=== PATIENT | female | born 1980 | race American Indian/Alaskan Native ===

== ENCOUNTER 2017-02-27 17:02 | Inpatient (IN) | payer MEDICAID ==
[2017-02-27] MEDS ORDERED: LACTATED RINGERS 500 ML IV ONE (17:33)
[2017-02-27] MEDS ORDERED: CELESTONE SOLUSPAN IM ONE (19:34)
[2017-02-27] MEDS ORDERED: MAGNESIUM SULFATE 4GM/100ML 4 GM/100 ML BAG IV ONE ×2 (19:42→20:05)
[2017-02-27] MEDS: LACTATED RINGERS 1,000 ML IV SCH (20:05)
--- NOTE | 2017-02-27 20:18 | History and Physical Report ---
History of Present Illness Date of examination: 02/27/17 Chief complaint: Short cervix w/ Pos FFN at 25+6 wks History of present illness: 36-year-old at 25+6 weeks presents for the above complaints and issues , she is a [facility]. Essential history this patient with known short cervix being seen by [facility]. She started vaginal progesterone on February 12 and last cervical length was 0.4 cm on February 19. Patient was seen in clinic today for fibronectin which was positive. She was then sent by the public policy coordinator to the triage to receive Celestone shot. Prior history is complicated by PPROM at 21 weeks in 07/2105 followed by nonviable delivery. In triage, we obtained an ultrasound which shows no cervical length with infant in breech with funic presentation. She is currently not indy Note that ultrasound also shows a 5 cm anterior fibroid Past History Past Medical History: no pertinent history Past Surgical History: no surgical history [employer] History: fibroids (she has a 5 cm anterior fibroid), trichomonas. denies: chlamydia, gonorrhea, HIV, syphilis Social history: single, full code. denies: smoking, alcohol abuse, prescription drug abuse, IV drug use - Obstetrical History Expected Date of Delivery: 06/06/17 Actual Gestation: 26 Week(s) 0 Day(s) : 3 Para: 2 Hx # Term Pregnancies: 1 Number of Pregnancies: 1 Number of Living Children: 1 Medications and Allergies Allergies Allergy/AdvReac Type Severity Reaction Status Date / Time No Known Allergies Allergy Unverified 02/27/17 17:25 Home Medications Medication Instructions Recorded Confirmed Last Taken Type Progesterone,Micronized 200 mg VG QHS 02/27/17 02/27/17 02/26/17 History [Progesterone] Active Meds: Active Medications Lactated Ringer's (Lactated Ringers) 1,000 mls @ 125 mls/hr IV DIRECT ERICA Last Admin: 02/27/17 20:05 Dose: 125 mls/hr Magnesium Sulfate (Magnesium Sulfate 40gm/1000ml) 40 gm in 1,000 mls @ 50 mls/ hr IV DIRECT ERICA PRN Reason: 2 GM/HR Magnesium Sulfate (Magnesium Sulfate 4gm/100ml) 4 gm in 100 mls @ 300 mls/hr IV ONCE ONE Stop: 02/27/17 20:24 Review of Systems Constitutional: no fever, no chills Cardiovascular: no chest pain, no orthopnea, no syncope, no lightheadedness, no shortness of breath, no dyspnea on exertion, no high blood pressure Respiratory: no cough, no shortness of breath, no dyspnea on exertion Gastrointestinal: no abdominal pain, no nausea, no vomiting Genitourinary: no vaginal bleeding, no vaginal discharge, no leakage of fluid - Vital Signs Vital signs: Vital Signs Pulse Pulse Ox 119 H 93 02/27/17 17:29 02/27/17 17:29 Temp Pulse Resp BP Pulse Ox 98.9 F 125 H 20 112/56 99 02/27/17 17:36 02/27/17 20:08 02/27/17 17:36 02/27/17 20:03 02/27/17 20:08 - Physical Exam Cardiovascular: Regular rate, Normal S1, Normal S2 Lungs: Positive: Clear to auscultation, Normal air movement Abdomen: Positive: normal appearance, soft. Negative: distention, tenderness, guarding, rigidity Genitourinary (Female): Positive: normal external genitalia Uterus: Positive: enlarged (EFW ~ 2000) Extremities: Positive: normal - Obstetrical FHR: category 1 Uterine Contraction Frequency (min): 0 Results Result Diagrams: 02/27/17 20:00 02/27/17 20:00 All other labs normal. Assessment and Plan A: 36-year-old 101 at 25+6 weeks with short cervix and positive fibronectin -No CTX Issues -No cervical length on sono today (02/27/17) -Breech with Funic presentation -Anterior ~ 5 cm fibroid -Morbid Obesity -NICU on diversion P: -Patient has been started on magnesium and Celestone course -Discussed with MFM manual control auger press operator for [facility]. Manzano, he recommends not proceeding with at this time -Continue conservative care for now -Discussed w/ NICU physician, would like patient transferred -Unfortunately, no accepting physician for transfer at this time - Patient Problems (1) 25 to 26 weeks gestation of Current Visit: Yes Status: Acute (2) Short cervical length during in third trimester Current Visit: Yes Status: Acute (3) Funic presentation Current Visit: Yes Status: Acute Qualifiers: Fetus number: F (4) Breech presentation Current Visit: Yes Status: Acute Qualifiers: Fetus number: F
[2017-02-27] MEDS: MAGNESIUM SULFATE 40GM/1000ML 40 GM/1,000 ML BAG IV SCH (20:25)
[2017-02-27 20:27] LABS: Hematocrit 30.7 % (30.3-42.9); Mean Corpuscular HGB Conc 33 % (30-34); Mean Corpuscular Hemoglobin 27 pg (28-32); Mean Corpuscular Volume 83 fl (79-97); Platelet Count 286 K/mm3 (140-440); Red Blood Count 3.69 M/mm3 (3.65-5.03); Red Cell Distribution Width 15.5 % (13.2-15.2)
[2017-02-27 20:39] LABS: Bacteria,Urine 4+ /HPF (Negative); Bilirubin,Urine NEG (Negative); Blood,Urine SM (Negative); Ketones,Urine NEG (Negative); Leukocyte Esterase,Urine MOD (Negative); Mucus,Urine 2+ /HPF; Nitrite,Urine POS (Negative); Urobilinogen,Urine < 2.0 mg/dL (<2.0)
[2017-02-27 20:48] LABS: Anion Gap 19 mmol/L; Blood Urea Nitrogen 5 mg/dL (7-17); Carbon Dioxide 21 mmol/L (22-30); Chloride 100.5 mmol/L (98-107); Glucose 91 mg/dL (65-100); Sodium 136 mmol/L (137-145)
[2017-02-27] MEDS ORDERED: ZOFRAN IV PRN (20:50)
[2017-02-27] MEDS ORDERED: TYLENOL PO PRN (20:50)
[2017-02-27] MEDS ORDERED: COLACE PO PRN (20:50)
[2017-02-27] MEDS ORDERED: D5LR 1,000 ML IV SCH (21:00)
[2017-02-28] MEDS ORDERED: LACTATED RINGERS 1,000 ML ONE ×2 (07:07→19:55)
[2017-02-28] MEDS ORDERED: NACL 0.9% 500 ML 500 ML IV ONE (07:08)
--- NOTE | 2017-02-28 07:08 | Progress Note ---
Assessment and Plan A: 36-year-old at 26 weeks with short cervix and positive fibronectin -No CTX Issues -No cervical length on sono (02/27/17) -Breech with Funic presentation -Anterior ~ 5 cm fibroid -Morbid Obesity -NICU on diversion -s/p BMZ # 1 (02/27 @ ~ 19:00) -On Magnesium P: -Await MFM consultation -Continue present care -Patient understands delivery will be a - Patient Problems (1) 25 to 26 weeks gestation of Current Visit: Yes Status: Acute (2) Short cervical length during in third trimester Current Visit: Yes Status: Acute (3) Funic presentation Current Visit: Yes Status: Acute Qualifiers: Fetus number: F (4) Breech presentation Current Visit: Yes Status: Acute Qualifiers: Fetus number: F Subjective - Subjective Date of service: 02/28/17 Principal diagnosis: IUP @ 26 wks, No cervical length, FFN pos Interval history: Patient seen and examined, stable this morning with no issues. No contractions , no vaginal bleeding or loss of fluid Patient reports: new complaints, movement normal, no loss of fluid, no vaginal bleeding, no contractions Objective - Vital Signs Vital Signs: Vital Signs - 12hr 02/27/17 02/27/17 02/27/17 20:01 20:03 20:05 Temperature Pulse Rate 104 H 100 H 119 H Pulse Rate [ From Monitor] Respiratory Rate Blood Pressure 150/93 112/56 Blood Pressure [Right Arm] O2 Sat by Pulse 95 91 Oximetry 02/27/17 02/27/17 02/27/17 20:07 20:08 20:11 Temperature Pulse Rate 119 H 125 H 117 H Pulse Rate [ From Monitor] Respiratory Rate Blood Pressure Blood Pressure [Right Arm] O2 Sat by Pulse 92 99 97 Oximetry 02/27/17 02/27/17 02/27/17 20:16 20:17 20:21 Temperature Pulse Rate 125 H 110 H 107 H Pulse Rate [ From Monitor] Respiratory Rate Blood Pressure 107/59 Blood Pressure [Right Arm] O2 Sat by Pulse 99 99 Oximetry 02/27/17 02/27/17 02/27/17 20:23 20:28 20:33 Temperature Pulse Rate 129 H 110 H 102 H Pulse Rate [ From Monitor] Respiratory Rate Blood Pressure 116/60 Blood Pressure [Right Arm] O2 Sat by Pulse 99 99 Oximetry 02/27/17 02/27/17 02/27/17 20:34 20:39 20:40 Temperature 98.2 F Pulse Rate 113 H 108 H Pulse Rate [ From Monitor] Respiratory 22 Rate Blood Pressure Blood Pressure [Right Arm] O2 Sat by Pulse 99 98 Oximetry 02/27/17 02/27/17 02/27/17 20:44 20:48 20:49 Temperature Pulse Rate 113 H 105 H 113 H Pulse Rate [ From Monitor] Respiratory Rate Blood Pressure 117/58 Blood Pressure [Right Arm] O2 Sat by Pulse 99 99 Oximetry 02/27/17 02/27/17 02/27/17 20:54 20:55 20:58 Temperature Pulse Rate 104 H 125 H 129 H Pulse Rate [ From Monitor] Respiratory Rate Blood Pressure Blood Pressure [Right Arm] O2 Sat by Pulse 99 94 99 Oximetry 02/27/17 02/27/17 02/27/17 21:03 21:08 21:13 Temperature Pulse Rate 107 H 107 H 105 H Pulse Rate [ From Monitor] Respiratory Rate Blood Pressure 122/44 Blood Pressure [Right Arm] O2 Sat by Pulse 99 99 99 Oximetry 02/27/17 02/27/17 02/27/17 21:18 21:22 21:27 Temperature Pulse Rate 101 H 107 H 105 H Pulse Rate [ From Monitor] Respiratory Rate Blood Pressure 126/101 Blood Pressure [Right Arm] O2 Sat by Pulse 99 90 97 Oximetry 02/27/17 02/27/17 02/27/17 21:28 21:57 21:58 Temperature Pulse Rate 119 H 123 H 107 H Pulse Rate [ From Monitor] Respiratory Rate Blood Pressure Blood Pressure [Right Arm] O2 Sat by Pulse 82 L 92 97 Oximetry 02/27/17 02/27/17 02/27/17 22:03 22:08 22:13 Temperature Pulse Rate 107 H 105 H 118 H Pulse Rate [ From Monitor] Respiratory Rate Blood Pressure Blood Pressure [Right Arm] O2 Sat by Pulse 98 98 98 Oximetry 02/27/17 02/27/17 02/27/17 22:18 22:23 22:28 Temperature Pulse Rate 114 H 106 H 110 H Pulse Rate [ From Monitor] Respiratory Rate Blood Pressure Blood Pressure [Right Arm] O2 Sat by Pulse 97 97 96 Oximetry 02/27/17 02/27/17 02/27/17 22:33 22:38 22:43 Temperature Pulse Rate 108 H 98 H 105 H Pulse Rate [ From Monitor] Respiratory Rate Blood Pressure Blood Pressure [Right Arm] O2 Sat by Pulse 98 96 98 Oximetry 02/27/17 02/27/17 02/27/17 22:48 22:53 22:58 Temperature Pulse Rate 104 H 104 H 102 H Pulse Rate [ From Monitor] Respiratory Rate Blood Pressure Blood Pressure [Right Arm] O2 Sat by Pulse 97 96 96 Oximetry 02/27/17 02/27/17 02/27/17 23:03 23:07 23:10 Temperature 98.1 F Pulse Rate 104 H 111 H Pulse Rate [ 111 H From Monitor] Respiratory 20 Rate Blood Pressure 129/67 Blood Pressure 129/67 [Right Arm] O2 Sat by Pulse 96 Oximetry 02/27/17 02/27/17 02/27/17 23:21 23:24 23:26 Temperature Pulse Rate 109 H 113 H Pulse Rate [ From Monitor] Respiratory 20 Rate Blood Pressure Blood Pressure [Right Arm] O2 Sat by Pulse 96 94 Oximetry 02/27/17 02/27/17 02/27/17 23:29 23:32 23:34 Temperature Pulse Rate 108 H 114 H 120 H Pulse Rate [ From Monitor] Respiratory Rate Blood Pressure Blood Pressure [Right Arm] O2 Sat by Pulse 95 94 94 Oximetry 02/27/17 02/27/17 02/27/17 23:37 23:39 23:44 Temperature Pulse Rate 114 H 108 H 107 H Pulse Rate [ From Monitor] Respiratory Rate Blood Pressure Blood Pressure [Right Arm] O2 Sat by Pulse 94 94 95 Oximetry 02/27/17 02/27/17 02/27/17 23:47 23:49 23:53 Temperature Pulse Rate 108 H 110 H 109 H Pulse Rate [ From Monitor] Respiratory Rate Blood Pressure Blood Pressure [Right Arm] O2 Sat by Pulse 94 95 94 Oximetry 02/27/17 02/27/17 02/28/17 23:54 23:59 00:04 Temperature Pulse Rate 109 H 107 H 106 H Pulse Rate [ From Monitor] Respiratory Rate Blood Pressure Blood Pressure [Right Arm] O2 Sat by Pulse 95 95 94 Oximetry 02/28/17 02/28/17 02/28/17 00:09 00:11 00:14 Temperature Pulse Rate 103 H 109 H 103 H Pulse Rate [ From Monitor] Respiratory Rate Blood Pressure Blood Pressure [Right Arm] O2 Sat by Pulse 96 94 96 Oximetry 02/28/17 02/28/17 02/28/17 00:19 00:23 00:24 Temperature Pulse Rate 108 H 110 H 104 H Pulse Rate [ From Monitor] Respiratory Rate Blood Pressure Blood Pressure [Right Arm] O2 Sat by Pulse 96 94 94 Oximetry 02/28/17 02/28/17 02/28/17 00:29 00:34 00:39 Temperature Pulse Rate 113 H 110 H 112 H Pulse Rate [ From Monitor] Respiratory Rate Blood Pressure Blood Pressure [Right Arm] O2 Sat by Pulse 94 98 95 Oximetry 02/28/17 02/28/17 02/28/17 00:40 00:44 00:45 Temperature Pulse Rate 118 H 112 H 114 H Pulse Rate [ From Monitor] Respiratory Rate Blood Pressure Blood Pressure [Right Arm] O2 Sat by Pulse 94 94 94 Oximetry 02/28/17 02/28/17 02/28/17 00:49 00:52 00:54 Temperature Pulse Rate 132 H 110 H 110 H Pulse Rate [ From Monitor] Respiratory Rate Blood Pressure Blood Pressure [Right Arm] O2 Sat by Pulse 96 94 92 Oximetry 02/28/17 02/28/17 02/28/17 00:58 00:59 01:04 Temperature Pulse Rate 111 H 112 H 109 H Pulse Rate [ From Monitor] Respiratory Rate Blood Pressure Blood Pressure [Right Arm] O2 Sat by Pulse 93 93 92 Oximetry 02/28/17 02/28/17 02/28/17 01:06 01:09 01:14 Temperature Pulse Rate 109 H 108 H 109 H Pulse Rate [ From Monitor] Respiratory Rate Blood Pressure Blood Pressure [Right Arm] O2 Sat by Pulse 92 93 92 Oximetry 02/28/17 02/28/17 02/28/17 01:19 01:24 01:29 Temperature Pulse Rate 107 H 106 H 106 H Pulse Rate [ From Monitor] Respiratory Rate Blood Pressure Blood Pressure [Right Arm] O2 Sat by Pulse 92 91 92 Oximetry 02/28/17 02/28/17 02/28/17 01:34 01:39 01:43 Temperature Pulse Rate 110 H 115 H 115 H Pulse Rate [ From Monitor] Respiratory Rate Blood Pressure Blood Pressure [Right Arm] O2 Sat by Pulse 91 95 91 Oximetry 02/28/17 02/28/17 02/28/17 01:44 01:49 01:50 Temperature Pulse Rate 111 H 109 H 103 H Pulse Rate [ From Monitor] Respiratory Rate Blood Pressure Blood Pressure [Right Arm] O2 Sat by Pulse 92 91 94 Oximetry 02/28/17 02/28/17 02/28/17 01:54 01:59 02:04 Temperature Pulse Rate 107 H 118 H 107 H Pulse Rate [ From Monitor] Respiratory Rate Blood Pressure Blood Pressure [Right Arm] O2 Sat by Pulse 93 95 92 Oximetry 02/28/17 02/28/17 02/28/17 02:05 02:08 02:14 Temperature Pulse Rate 106 H 107 H 106 H Pulse Rate [ From Monitor] Respiratory Rate Blood Pressure Blood Pressure [Right Arm] O2 Sat by Pulse 92 92 91 Oximetry 02/28/17 02/28/17 02/28/17 02:19 02:23 02:28 Temperature Pulse Rate 123 H 104 H 100 H Pulse Rate [ From Monitor] Respiratory Rate Blood Pressure Blood Pressure [Right Arm] O2 Sat by Pulse 95 96 98 Oximetry 02/28/17 02/28/17 02/28/17 02:31 02:33 02:35 Temperature 97.9 F Pulse Rate 105 H 112 H Pulse Rate [ 101 H From Monitor] Respiratory 20 Rate Blood Pressure 121/62 Blood Pressure 121/62 [Right Arm] O2 Sat by Pulse 97 97 91 Oximetry 02/28/17 02/28/17 02/28/17 02:39 02:43 02:49 Temperature Pulse Rate 98 H 100 H 107 H Pulse Rate [ From Monitor] Respiratory Rate Blood Pressure Blood Pressure [Right Arm] O2 Sat by Pulse 98 97 97 Oximetry 02/28/17 02/28/17 02/28/17 02:53 02:59 03:04 Temperature Pulse Rate 100 H 102 H 99 H Pulse Rate [ From Monitor] Respiratory Rate Blood Pressure Blood Pressure [Right Arm] O2 Sat by Pulse 98 97 97 Oximetry 02/28/17 02/28/17 02/28/17 03:08 03:13 03:18 Temperature Pulse Rate 100 H 99 H 101 H Pulse Rate [ From Monitor] Respiratory Rate Blood Pressure Blood Pressure [Right Arm] O2 Sat by Pulse 97 97 97 Oximetry 02/28/17 02/28/17 02/28/17 03:23 03:28 03:34 Temperature Pulse Rate 106 H 94 H 101 H Pulse Rate [ From Monitor] Respiratory Rate Blood Pressure Blood Pressure [Right Arm] O2 Sat by Pulse 97 98 97 Oximetry 02/28/17 02/28/17 02/28/17 03:39 03:44 03:49 Temperature Pulse Rate 106 H 114 H 105 H Pulse Rate [ From Monitor] Respiratory Rate Blood Pressure Blood Pressure [Right Arm] O2 Sat by Pulse 94 0 L 97 Oximetry 02/28/17 02/28/17 02/28/17 03:54 03:58 04:02 Temperature Pulse Rate 121 H 108 H 102 H Pulse Rate [ From Monitor] Respiratory Rate Blood Pressure 107/55 Blood Pressure [Right Arm] O2 Sat by Pulse 91 96 Oximetry 02/28/17 02/28/17 02/28/17 04:04 04:08 04:13 Temperature Pulse Rate 104 H 119 H 109 H Pulse Rate [ From Monitor] Respiratory Rate Blood Pressure Blood Pressure [Right Arm] O2 Sat by Pulse 96 97 97 Oximetry 02/28/17 02/28/17 02/28/17 04:19 04:23 04:28 Temperature Pulse Rate 102 H 104 H 106 H Pulse Rate [ From Monitor] Respiratory Rate Blood Pressure Blood Pressure [Right Arm] O2 Sat by Pulse 96 98 98 Oximetry 02/28/17 02/28/17 02/28/17 04:33 04:39 04:43 Temperature Pulse Rate 107 H 108 H 109 H Pulse Rate [ From Monitor] Respiratory Rate Blood Pressure Blood Pressure [Right Arm] O2 Sat by Pulse 98 98 98 Oximetry 02/28/17 02/28/17 02/28/17 04:48 04:53 04:58 Temperature Pulse Rate 114 H 106 H 105 H Pulse Rate [ From Monitor] Respiratory Rate Blood Pressure Blood Pressure [Right Arm] O2 Sat by Pulse 98 97 97 Oximetry 02/28/17 02/28/17 02/28/17 05:03 05:08 05:13 Temperature Pulse Rate 101 H 102 H 104 H Pulse Rate [ From Monitor] Respiratory Rate Blood Pressure Blood Pressure [Right Arm] O2 Sat by Pulse 96 97 96 Oximetry 02/28/17 02/28/17 02/28/17 05:18 05:22 05:23 Temperature Pulse Rate 101 H 103 H 101 H Pulse Rate [ From Monitor] Respiratory Rate Blood Pressure Blood Pressure [Right Arm] O2 Sat by Pulse 95 94 96 Oximetry 02/28/17 02/28/17 02/28/17 05:28 05:33 05:37 Temperature Pulse Rate 105 H 96 H 108 H Pulse Rate [ From Monitor] Respiratory Rate Blood Pressure Blood Pressure [Right Arm] O2 Sat by Pulse 94 95 94 Oximetry 02/28/17 02/28/17 02/28/17 05:38 05:43 05:44 Temperature Pulse Rate 93 H 104 H 99 H Pulse Rate [ From Monitor] Respiratory Rate Blood Pressure Blood Pressure [Right Arm] O2 Sat by Pulse 96 95 94 Oximetry 02/28/17 02/28/17 02/28/17 05:48 05:53 05:58 Temperature Pulse Rate 98 H 98 H 105 H Pulse Rate [ From Monitor] Respiratory Rate Blood Pressure Blood Pressure [Right Arm] O2 Sat by Pulse 98 98 98 Oximetry 02/28/17 02/28/17 02/28/17 06:03 06:08 06:13 Temperature Pulse Rate 108 H 98 H 102 H Pulse Rate [ From Monitor] Respiratory Rate Blood Pressure Blood Pressure [Right Arm] O2 Sat by Pulse 97 98 97 Oximetry 02/28/17 02/28/17 02/28/17 06:18 06:23 06:28 Temperature Pulse Rate 109 H 105 H 99 H Pulse Rate [ From Monitor] Respiratory Rate Blood Pressure Blood Pressure [Right Arm] O2 Sat by Pulse 96 97 97 Oximetry 02/28/17 02/28/17 02/28/17 06:33 06:38 06:43 Temperature Pulse Rate 99 H 101 H 110 H Pulse Rate [ From Monitor] Respiratory Rate Blood Pressure Blood Pressure [Right Arm] O2 Sat by Pulse 96 98 97 Oximetry 02/28/17 02/28/17 02/28/17 06:48 06:51 06:53 Temperature Pulse Rate 103 H 111 H 105 H Pulse Rate [ From Monitor] Respiratory Rate Blood Pressure Blood Pressure [Right Arm] O2 Sat by Pulse 97 93 96 Oximetry 02/28/17 02/28/17 06:57 06:58 Temperature Pulse Rate 99 H 98 H Pulse Rate [ From Monitor] Respiratory Rate Blood Pressure Blood Pressure [Right Arm] O2 Sat by Pulse 94 96 Oximetry - Exam Abdomen: Present: normal appearance, soft. Absent: distention, tenderness, guarding Uterus: Absent: tenderness FHR: category 1 - Labs Labs: Abnormal Labs 02/27/17 02/27/17 02/28/17 20:00 20:00 02:25 Hgb 10.0 L MCH 27 L RDW 15.5 H Sodium 136 L Carbon Dioxide 21 L BUN 5 L Creatinine 0.4 L Magnesium 3.80 H Laboratory Results - last 24 hr 02/27/17 02/27/17 02/27/17 20:00 20:00 20:00 WBC 9.0 RBC 3.69 Hgb 10.0 L Hct 30.7 MCV 83 MCH 27 L MCHC 33 RDW 15.5 H Plt Count 286 Sodium 136 L Potassium 4.0 Chloride 100.5 Carbon Dioxide 21 L Anion Gap 19 BUN 5 L Creatinine 0.4 L Estimated GFR > 60 BUN/Creatinine Ratio 12.50 Glucose 91 Calcium 9.0 Magnesium Urine Color Yellow Urine Turbidity Slightly-cloudy Urine pH 7.0 Ur Specific [place] 1.020 Urine Protein 30 mg/dl Urine Glucose (UA) Neg Urine Ketones Neg Urine Blood Sm Urine Nitrite Pos Urine Bilirubin Neg Urine Urobilinogen < 2.0 Ur Leukocyte Esterase Mod Urine WBC (Auto) 2.0 Urine RBC (Auto) 3.0 U Epithel Cells (Auto) 13.0 Urine Bacteria (Auto) 4+ Urine Mucus 2+ Blood Type Antibody Screen KIMBER Antibody Screen 02/27/17 02/28/17 20:00 02:25 WBC RBC Hgb Hct MCV MCH MCHC RDW Plt Count Sodium Potassium Chloride Carbon Dioxide Anion Gap BUN Creatinine Estimated GFR BUN/Creatinine Ratio Glucose Calcium Magnesium 3.80 H Urine Color Urine Turbidity Urine pH Ur Specific [place] Urine Protein Urine Glucose (UA) Urine Ketones Urine Blood Urine Nitrite Urine Bilirubin Urine Urobilinogen Ur Leukocyte Esterase Urine WBC (Auto) Urine RBC (Auto) U Epithel Cells (Auto) Urine Bacteria (Auto) Urine Mucus Blood Type O POSITIVE Antibody Screen TNR KIMBER Antibody Screen Negative
--- NOTE | 2017-02-28 09:57 | Ultrasound Report ---
ULTRASOUND OB LIMITED ULTRASOUND OB TRANSVAGINAL History: well being, evaluate position Technique: Transabdominal ultrasound with Doppler interrogation. Gestation: Single Position: Breech Heart Rate: 151 BPM Cervical length: 0.0 cm (Normal > 3 cm). The cervix is open and the external os measures 0.9 cm in diameter.
[2017-02-28] MEDS: MAGNESIUM SULFATE 40GM/1000ML 40 GM/1,000 ML BAG IV SCH (16:01)
--- NOTE | 2017-02-28 17:58 | Event Note ---
Date: 02/28/17 Category 1 tracing, still no cramping or contractions. Reviewed preliminary ultrasound report, shows cervical length 0.32 cm with funeling at 1.3 cm. Infant still breech but funic presentation appears to have resolved. Patient may continue to use her vaginal progesterone per MFM but placement should be shallow
[2017-02-28] MEDS ORDERED: CELESTONE SOLUSPAN IM ONE (20:00)
[2017-02-28] MEDS: LACTATED RINGERS 1,000 ML IV SCH (20:01)
[2017-02-28] MEDS ORDERED: LACTATED RINGERS 1,000 ML IV SCH (21:00)
--- NOTE | 2017-03-01 08:07 | Progress Note ---
Assessment and Plan A: 36-year-old at 26+1 weeks with short cervix and positive fibronectin -No CTX Issues -Repeat C.L. ~ 0.3 cm w/ funneling on sono (02/28/17) -Breech (Funic presentation resolved) -Anterior ~ 5 cm fibroid -Morbid Obesity -s/p BMZ # 2 (02/28/17) P: -Repeat magnesium level now -Discontinue IV magnesium protocol at ~ 8 PM -Continue present care -Await MFM input - Patient Problems (1) 25 to 26 weeks gestation of Current Visit: Yes Status: Acute (2) Short cervical length during in third trimester Current Visit: Yes Status: Acute (3) Funic presentation Current Visit: Yes Status: Acute Qualifiers: Fetus number: F (4) Breech presentation Current Visit: Yes Status: Acute Qualifiers: Fetus number: F Subjective - Subjective Date of service: 03/01/17 Principal diagnosis: IUP @ 26+1 wks, No cervical length, FFN pos Interval history: Patient seen and examined, stable doing well. She currently has no contractions or cramping. Ultrasound yesterday showed infants delivered breech, cervical length however 0.36 now with funneling. Funic presentation appears to have resolved. Magnesium level drawn yesterday shows a level of 16, patient shows no sign of toxicity. Plan is repeat mag level at this time Patient reports: new complaints, movement normal, no loss of fluid, no vaginal bleeding, no contractions Objective - Vital Signs Vital Signs: Vital Signs - 12hr 03/01/17 03/01/17 03/01/17 00:05 00:20 00:25 Temperature 98.1 F Pulse Rate 112 H 106 H 104 H Respiratory 22 Rate Blood Pressure 127/63 O2 Sat by Pulse 96 96 Oximetry 03/01/17 03/01/17 03/01/17 00:27 00:30 00:33 Temperature Pulse Rate 102 H 103 H 103 H Respiratory Rate Blood Pressure O2 Sat by Pulse 94 92 94 Oximetry 03/01/17 03/01/17 03/01/17 00:35 00:39 00:40 Temperature Pulse Rate 105 H 102 H 102 H Respiratory Rate Blood Pressure O2 Sat by Pulse 93 93 92 Oximetry 03/01/17 03/01/17 03/01/17 00:45 00:50 00:55 Temperature Pulse Rate 100 H 99 H 103 H Respiratory Rate Blood Pressure O2 Sat by Pulse 91 93 91 Oximetry 03/01/17 03/01/17 03/01/17 01:00 01:05 01:10 Temperature Pulse Rate 102 H 99 H 100 H Respiratory Rate Blood Pressure O2 Sat by Pulse 93 91 96 Oximetry 03/01/17 03/01/17 03/01/17 01:11 01:15 03:55 Temperature 97.9 F Pulse Rate 103 H 104 H Respiratory Rate Blood Pressure O2 Sat by Pulse 91 92 Oximetry 03/01/17 03/01/17 03/01/17 04:51 06:07 06:12 Temperature Pulse Rate 120 H 110 H 106 H Respiratory 20 Rate Blood Pressure 136/75 O2 Sat by Pulse 96 97 Oximetry 03/01/17 03/01/17 03/01/17 06:17 06:22 06:27 Temperature Pulse Rate 106 H 103 H 106 H Respiratory Rate Blood Pressure O2 Sat by Pulse 97 97 96 Oximetry 03/01/17 03/01/17 03/01/17 06:32 06:37 06:42 Temperature Pulse Rate 111 H 115 H 111 H Respiratory Rate Blood Pressure O2 Sat by Pulse 98 99 98 Oximetry 03/01/17 03/01/17 03/01/17 06:47 06:51 06:52 Temperature Pulse Rate 100 H 102 H 109 H Respiratory Rate Blood Pressure O2 Sat by Pulse 97 94 97 Oximetry 03/01/17 03/01/17 03/01/17 06:57 07:02 07:07 Temperature Pulse Rate 101 H 97 H 100 H Respiratory Rate Blood Pressure O2 Sat by Pulse 96 96 96 Oximetry 03/01/17 03/01/17 03/01/17 07:12 07:17 07:22 Temperature Pulse Rate 90 94 H 94 H Respiratory Rate Blood Pressure O2 Sat by Pulse 97 97 97 Oximetry 03/01/17 03/01/17 03/01/17 07:27 07:32 07:37 Temperature Pulse Rate 93 H 88 97 H Respiratory Rate Blood Pressure O2 Sat by Pulse 96 97 96 Oximetry 03/01/17 03/01/17 03/01/17 07:38 07:42 07:47 Temperature Pulse Rate 93 H 98 H 99 H Respiratory Rate Blood Pressure 122/66 O2 Sat by Pulse 98 97 Oximetry 03/01/17 03/01/17 07:52 07:57 Temperature Pulse Rate 118 H 101 H Respiratory Rate Blood Pressure O2 Sat by Pulse 96 98 Oximetry - Exam FHR: category 1 - Labs Labs: Abnormal Labs 02/27/17 02/27/17 02/27/17 20:00 20:00 20:00 Hgb 10.0 L MCH 27 L RDW 15.5 H Sodium 136 L Carbon Dioxide 21 L BUN 5 L Creatinine 0.4 L Magnesium Crossmatch See Detail 02/28/17 02/28/17 02/28/17 02:25 06:50 15:34 Hgb MCH RDW Sodium Carbon Dioxide BUN Creatinine Magnesium 3.80 H 4.20 H 4.10 H Crossmatch 02/28/17 23:07 Hgb MCH RDW Sodium Carbon Dioxide BUN Creatinine Magnesium 16.20 H Crossmatch Laboratory Results - last 24 hr 02/27/17 02/28/17 02/28/17 20:00 15:34 23:07 Magnesium 4.10 H 16.20 H Blood Type O POSITIVE Antibody Screen TNR KIMBER Antibody Screen Negative Crossmatch See Detail
[2017-03-01] MEDS ORDERED: MILK OF MAGNESIA PO PRN (10:00)
[2017-03-01] MEDS: MAGNESIUM SULFATE 40GM/1000ML 40 GM/1,000 ML BAG IV SCH (10:40)
--- NOTE | 2017-03-01 12:26 | Consultation ---
History of Present Illness Consult date: 03/01/17 Requesting physician: FEDERICO DANG History of present illness: 36-year-old at 26 0/7 weeks She is a [facility]. Patient had Pos FFN and shortened Cervix and sent Essential history this patient with known short cervix being seen by [facility]. She started vaginal progesterone on February 12 and last cervical length was 0.4 cm on February 19. She was then sent by the therapy site coordinator to the triage to receive Celestone shot. 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 denies: chlamydia, gonorrhea, HIV, syphilis Social history: single, full code. denies: smoking, alcohol abuse, prescription drug abuse, IV drug use - Obstetrical History Expected Date of Delivery: 06/06/17 Actual Gestation: 26 Week(s) 0 Day(s) : 3 Para: 2 2008 - Term M 7# 2015 - Vag Del - PPROM at 22 weeks \\ Past History Past Medical History: no pertinent history Past Surgical History: no surgical history CURRICULUM DIRECTOR History: fibroids (she has a 5 cm anterior fibroid), trichomonas. denies: chlamydia, gonorrhea, HIV, syphilis - Obstetrical History : 3 Medications and Allergies Allergies Allergy/AdvReac Type Severity Reaction Status Date / Time No Known Allergies Allergy Unverified 02/27/17 17:25 Home Medications Medication Instructions Recorded Confirmed Last Taken Type Progesterone,Micronized 200 mg VG QHS 02/27/17 02/27/17 02/26/17 History [Progesterone] Active Meds: Active Medications Acetaminophen (Tylenol) 650 mg PO Q4H PRN PRN Reason: Pain MILD(1-3)/Fever >100.5/CASTILLO Last Admin: 02/27/17 23:21 Dose: 650 mg Docusate Sodium (Colace) 100 mg PO Q12H PRN PRN Reason: Constipation Magnesium Sulfate (Magnesium Sulfate 40gm/1000ml) 40 gm in 1,000 mls @ 50 mls/ hr IV DIRECT ERICA PRN Reason: 2 GM/HR Last Admin: 02/28/17 16:01 Dose: 2 gm/hr, 50 mls/hr Lactated Ringer's (Lactated Ringers) 1,000 mls @ 75 mls/hr IV DIRECT ERICA Magnesium Hydroxide (Milk Of Magnesia) 30 ml PO QDAY PRN PRN Reason: Bowel Movement Ondansetron HCl (Zofran) 4 mg IV Q6H PRN PRN Reason: Nausea And Vomiting - Vital Signs Vital signs: Vital Signs Pulse Pulse Ox 119 H 93 02/27/17 17:29 02/27/17 17:29 Temp Pulse Resp BP Pulse Ox 98.6 F 100 H 18 122/66 95 03/01/17 07:00 03/01/17 08:42 03/01/17 07:00 03/01/17 07:38 03/01/17 08:42 Results Result Diagrams: 02/27/17 20:00 02/27/17 20:00 Abnormal lab results 02/27/17 02/28/17 02/28/17 Range/Units 20:00 15:34 23:07 Magnesium 4.10 H 16.20 H (1.7-2.3) mg/dL Crossmatch See Detail 03/01/17 Range/Units 08:16 Magnesium 5.10 H (1.7-2.3) mg/dL Crossmatch All other labs normal. Assessment and Plan Impression: 1. Larsen IUP at 26 0/7 weeks 2. Shortened CL with Funneling 3. Positive FFN 4. H/O PPROM at 22 weeks 5. Unstable Lie 6. Anemia 7. Pos UA - Send Urine C&S - Suspected UTI 8. MO Recommendations 1. Review of Images CL from [facility] US - Funneling noted with .32 cm of cervix at ext os. Would do Speculum Exam - If Cervix closed and membranes not coming through may allow discharge home with restricted activity and pelvic rest. Patient understands unstable lie and could rupture at home or in hospital. Patient states she lives "10 minutes from hospital" and would maintain bedrest. 2. Iron BID 3. Send Urine for C&S 4. Macrobid - BID - x 10 days 5. Call for DFM's, Vag Bleeding, S/S of PTL, or leakage or S/S of Chorio/ infection 6. Follow up with [facility] 2 weeks
--- NOTE | 2017-03-01 14:27 | Event Note ---
Date: 03/01/17 [facility] notes reviewed, thanks. Gentle speculum exam performed, no bulging membranes noted and OS appears closed. On gentle exam, os opened fingertip. Will discharge home as per Dr. Chatman's instructions. Patient aware of warning signs and symptoms to return to the hospital
--- NOTE | 2017-03-01 14:33 | Discharge Summary ---
Providers - Providers Date of Admission: 02/27/17 21:27 Date of discharge: 03/01/17 Attending physician: XIOMARA BENSON MD 02/27/17 20:50 Consult to Physician [CONS] Routine Consulting Provider: LAURA SEGURA Reason For Exam: No cervix w/ pos FFN Place consult to:: THANIA Notified:: EDEL at the office. Phone number called:: [phone] Was contact made?: Yes If yes, spoke with:: Dr Segura Time called:: 11:35 Primary care physician: XIOMARA BENSON MD Hospitalization Reason for admission: IUP - , observation Hospital course: 36-year-old admitted at 25+6 weeks on 02/27/17 with c/o short cervix and Pos FFN, she is a [facility]. Essential history this patient with known short cervix being seen by THANIA. She started vaginal progesterone on February 12 and last cervical length was 0.4 cm on February 19. Patient was seen in clinic today for fibronectin which was positive. She was then sent by the court abstractor to the triage to receive Celestone shot. Prior history is complicated by PPROM at ~ 21 weeks in 07/2015 followed by nonviable delivery. In triage, we obtained an ultrasound which shows no cervical length with in breech with funic presentation. She was currently not indy Note that ultrasound also shows a 5 cm anterior fibroid A: 36-year-old at 26+1 weeks with short cervix and positive fibronectin -No CTX Issues -Repeat C.L. ~ 0.3 cm w/ funneling on sono (02/28/17) -Breech (Funic presentation resolved) -Anterior ~ 5 cm fibroid -Morbid Obesity -s/p BMZ # 2 (02/28/17) She was admitted to the floor, and started on magnesium and Celestone course Repeat ultrasound on 02/28/2017 showed cervical length of 0.32 with funneling, funic presentation had resolved. Seen by M on consultation bases with recommendation to obtain sterile speculum exam. Recommendation is to discharge patient if no bulging membrane in the vagina. Speculum exam performed with os appearing closed. On gentle bimanual exam fingertip of the external os noted. She will be discharged home to follow up as recommended by MFM Advised continued bed rest with bathroom privileges. Complete pelvic rest but continue gentle application of Vaginal progesterone She is already aware of warning signs and symptoms needing return to the hospital Condition at discharge: Good Disposition: DISCHARGED TO HOME OR SELFCARE - Discharge Diagnoses (1) 25 to 26 weeks gestation of Status: Acute (2) Short cervical length during in third trimester Status: Acute (3) Funic presentation Status: Resolved Qualifiers: Fetus number: F (4) Breech presentation Status: Acute Qualifiers: Fetus number: F (5) Morbid obesity with BMI of 45.0-49.9, adult Status: Acute (6) Fibroid uterus Status: Acute Qualifiers: Uterine leiomyoma location: U (7) UTI (urinary tract infection) during Status: Acute Plan - Provider Discharge Summary Activity: no sex for 6 weeks, no heavy lifting 4 weeks, no strenuous exercise, other (bedrest with bathroom privileges) Diet: routine Instructions: other (follow MFM recommendations to return to the hospital) Additional instructions: [] Smoking cessation referral if applicable(refer to patient education folder for contact #) [] Refer to [facility] Booklet Call your doctor immediately for: * Fever > 100.5 * Heavy vaginal bleeding ( >1 pad per hour) * Severe persistent headache * Shortness of breath * Reddened, hot, painful area to leg or breast * Drainage or odor from incision. * Keep incision clean and dry at all times and follow doctor's instructions regarding bathing/showering - Follow up plan Follow up: XIOMARA UGALDE MD [Primary Care Provider] - 48 Hours
[2017-03-01 16:20] VITALS: BP 123/65
--- NOTE | 2017-03-02 07:54 | Ultrasound Report ---
ULTRASOUND OB LIMITED ULTRASOUND OB TRANSVAGINAL History: Follow up cervical length Technique: Transabdominal and transvaginal ultrasound with Doppler interrogation. Gestation: Single Position: Breech Heart Rate: 141 BPM Cervical length: 0.3 cm (Normal > 3 cm). Cervical funneling is identified. The internal cervical os this patient and measures 1.3 cm in diameter.
== END 2017-03-01 16:40 | disposition home or self-care (01) | DRG 781 ==
LOC: TRG 17:02 → LD 21:27
PROVIDERS: ADMIT Obstetrics & Gynecology; ATTEND Obstetrics & Gynecology
DX: O32.1XX0 Maternal care for breech presentation, not applicable or unspecified (principal); O23.43 Unspecified infection of urinary tract in pregnancy, third trimester; O26.873 Cervical shortening, third trimester; O34.13 Maternal care for benign tumor of corpus uteri, third trimester; O99.213 Obesity complicating pregnancy, third trimester; E66.01 Morbid (severe) obesity due to excess calories; O99.013 Anemia complicating pregnancy, third trimester; Z68.42 Body mass index [BMI] 45.0-49.9, adult; Z3A.26 26 weeks gestation of pregnancy
CPT/HCPCS: 36415; 76815; 76817; 80048; 81001; 83735; 85027; 86850; 86900; 86901; 86920; 87086; J0702; J3475; J7120

== ENCOUNTER 2017-03-20 03:04 | Outpatient (CLI) | payer MEDICAID ==
[2017-03-20] MEDS ORDERED: LACTATED RINGERS 500 ML IV ONE (03:19)
[2017-03-20 04:25] VITALS: BP 126/76
[2017-03-20 04:37] LABS: Bilirubin,Urine NEG (Negative); Blood,Urine SM (Negative); Ketones,Urine NEG (Negative); Leukocyte Esterase,Urine MOD (Negative); Mucus,Urine FEW /HPF; Nitrite,Urine NEG (Negative); Protein,Urine <15 mg/dL mg/dL (Negative); Urobilinogen,Urine < 2.0 mg/dL (<2.0)
[2017-03-20] MEDS ORDERED: LACTATED RINGERS 1,000 ML ONE (04:39)
[2017-03-20 05:16] LABS: Hematocrit 28.7 % (30.3-42.9); Hemoglobin 9.6 gm/dl (10.1-14.3); Mean Corpuscular HGB Conc 33 % (30-34); Mean Corpuscular Hemoglobin 28 pg (28-32); Mean Corpuscular Volume 83 fl (79-97); Platelet Count 260 K/mm3 (140-440); Red Blood Count 3.45 M/mm3 (3.65-5.03); Red Cell Distribution Width 15.8 % (13.2-15.2); White Blood Count 8.6 K/mm3 (4.5-11.0)
--- NOTE | 2017-03-20 08:46 | Ultrasound Report ---
LIMITED OB ULTRASOUND: Fluid leakage. Gestation: bowers JAMES = 9.5 cm Heart Rate: 153 BPM Estimated age is 28 weeks 6 days.
== END 2017-03-20 05:51 | disposition home or self-care (01) ==
LOC: TRG 03:04
PROVIDERS: ATTEND Obstetrics & Gynecology
DX: O42.92 Full-term premature rupture of membranes, unspecified as to length of time between rupture and onset of labor (principal); O47.03 False labor before 37 completed weeks of gestation, third trimester; Z3A.28 28 weeks gestation of pregnancy
CPT/HCPCS: 36415; 76815; 81001; 85027; 96360; J7120

== ENCOUNTER 2017-03-22 07:53 | Inpatient (IN) | payer MEDICAID ==
[2017-03-22] MEDS ORDERED: CELESTONE SOLUSPAN IM ONE ×2 (09:56→11:00)
--- NOTE | 2017-03-22 10:06 | History and Physical Report ---
History of Present Illness Date of examination: 03/22/17 Date of admission: 03/22/17 07:54 Chief complaint: I think I broke my water History of present illness: 36-year-old at 29+ weeks presents for the above complaints and issues, she is a [facility]. Essential history this patient with known short cervix being seen by [facility]. She started vaginal progesterone on February 12. She is status post admission to this hospital on 02/27/17 and completed a steroid course. Prior history is complicated by PPROM at ~ 22 weeks in 07/2015 with nonviable delivery. 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 denies: chlamydia, gonorrhea, hepatitis B, hepatitis C, herpes, HIV, syphilis Social history: single, full code. denies: smoking, alcohol abuse, prescription drug abuse, IV drug use - Obstetrical History Expected Date of Delivery: 06/06/17 Actual Gestation: 29 Week(s) 1 Day(s) : 3 Para: 1 Medications and Allergies Allergies Allergy/AdvReac Type Severity Reaction Status Date / Time No Known Allergies Allergy Verified 03/20/17 03:19 Home Medications Medication Instructions Recorded Confirmed Last Taken Type Progesterone,Micronized 200 mg VG QHS 02/27/17 02/27/17 02/26/17 History [Progesterone] Ferrous Sulfate [Feosol 325 MG tab] 325 mg PO BID #60 tablet 03/01/17 Unknown Rx Nitrofurantoin Sanders/M-Cryst 100 mg PO Q12HR #20 capsule 03/01/17 Unknown Rx [Macrobid CAP] Active Meds: Active Medications Betamethasone Acet/Betameth SodPhos (Celestone Soluspan) 12 mg IM ONCE ONE Stop: 03/22/17 10:02 Ephedrine Sulfate (Ephedrine Sulfate) 10 mg IV Q2M PRN PRN Reason: Hypotension Stop: 03/22/17 10:03 Lactated Ringer's (Lactated Ringers) 500 mls @ 999 mls/hr IV BOLUS ONE Stop: 03/22/17 08:34 Ampicillin Sodium (Polycillin/Ns 2 Gm/100 Ml) 2 gm in 100 mls @ 100 mls/hr IV ONCE ONE PRN Reason: Protocol Stop: 03/22/17 10:57 Ampicillin Sodium (Polycillin/Ns 1 Gm/50 Ml) 1 gm in 50 mls @ 100 mls/hr IV Q4HR ERICA PRN Reason: Protocol Lactated Ringer's (Lactated Ringers) 1,000 mls @ 125 mls/hr IV DIRECT ERICA Oxytocin/Sodium Chloride (Pitocin/Ns 20 Unit/1000ml Drip) 20 units in 1,000 mls @ 125 mls/hr IV DIRECT ERICA Oxytocin/Sodium Chloride (Pitocin/Ns 30 Unit/500ml) 30 units in 500 mls @ 1 mls /hr IV TITR ERICA; 1 MILLIUNITS/MIN PRN Reason: Protocol Lidocaine (Xylocaine 2%) 20 ml INFILTRATI ONCE ONE Stop: 03/22/17 09:59 Mineral Oil (Mineral Oil) 30 ml PO QHS PRN PRN Reason: Constipation Ondansetron HCl (Zofran) 4 mg IV Q8H PRN PRN Reason: Nausea And Vomiting Terbutaline Sulfate (Brethine) 0.25 mg SUB-Q ONCE PRN PRN Reason: Hyperstimulation/Hypertonicity Stop: 03/22/17 09:59 Terbutaline Sulfate (Brethine) 0.25 mg IVP ONCE PRN PRN Reason: Hyperstimulation/Hypertonicity Stop: 03/22/17 09:59 Review of Systems Constitutional: no fever, no chills, no sweats, no weakness Cardiovascular: no chest pain, no orthopnea, no palpitations, no syncope, no lightheadedness, no shortness of breath, no dyspnea on exertion, no high blood pressure Respiratory: no shortness of breath, no dyspnea on exertion Gastrointestinal: abdominal pain (regular painful contractions), no nausea, no vomiting, no heartburn, no dyspepsia/bloating Genitourinary: leakage of fluid, no vaginal bleeding, no vaginal discharge - Vital Signs Vital signs: Vital Signs Pulse Pulse Ox 121 H 92 03/22/17 08:13 03/22/17 08:13 Temp Pulse Resp BP Pulse Ox 127 H 137/89 99 03/22/17 09:43 03/22/17 08:14 03/22/17 09:43 - Physical Exam Abdomen: Positive: normal appearance, soft. Negative: distention, tenderness, guarding, rigidity Genitourinary (Female): Positive: normal external genitalia Uterus: Positive: enlarged (EFW ~ 2000 (Difficult to examine due to obesity)) Adnexa: both: normal Extremities: Positive: normal - Obstetrical FHR: category 2 Cervical Dilatation: 7.5 Results Result Diagrams: 03/22/17 10:00 All other labs normal. Assessment and Plan A: 36 y/o at 29+1 wks with labour -Cat 2 tracing -Cephalic via sono -s/p [facility] 03/01/17 P: -Patient already 7-8 cm dilated with regular painful contractions -Admit -Rescue steroids -Routine labs -Epidural when necessary -Antibiotic course -Expectant management -NICU notified and aware - Patient Problems (1) 29 weeks gestation of Current Visit: Yes Status: Acute (2) contractions Current Visit: Yes Status: Acute (3) premature rupture of membranes with onset of labor more than 24 hours following rupture Current Visit: Yes Status: Acute
[2017-03-22 10:16] LABS: Hematocrit 30.5 % (30.3-42.9); Hemoglobin 9.9 gm/dl (10.1-14.3); Mean Corpuscular HGB Conc 33 % (30-34); Mean Corpuscular Hemoglobin 27 pg (28-32); Mean Corpuscular Volume 82 fl (79-97); Platelet Count 284 K/mm3 (140-440); Red Blood Count 3.71 M/mm3 (3.65-5.03); Red Cell Distribution Width 15.8 % (13.2-15.2); White Blood Count 11.8 K/mm3 (4.5-11.0)
[2017-03-22] MEDS ORDERED: XYLOCAINE 2% INFILTRATI ONE (10:30)
[2017-03-22] MEDS ORDERED: ePHEDrine SULFATE IV PRN ×2 (10:30→12:12)
[2017-03-22] MEDS ORDERED: ZOFRAN IV PRN ×2 (10:30→14:59)
[2017-03-22] MEDS ORDERED: POLYCILLIN/NS 2 GM/100 ML 2 GM/100 ML BAG IV ONE (10:30)
[2017-03-22] MEDS ORDERED: PITOCin/NS 20 UNIT/1000ML DRIP 20 UNITS/1,000 ML BAG IV SCH ×2 (10:30→15:00)
[2017-03-22] MEDS ORDERED: LACTATED RINGERS 500 ML IV ONE (10:30)
[2017-03-22] MEDS ORDERED: PITOCin/NS 30 UNIT/500ML 30 UNITS/500 ML BAG IV SCH (10:30)
[2017-03-22] MEDS ORDERED: MINERAL OIL PO PRN (11:00)
[2017-03-22] MEDS ORDERED: BRETHINE SUB-Q PRN (11:00)
[2017-03-22] MEDS ORDERED: BRETHINE IVP PRN (11:00)
[2017-03-22] MEDS: LACTATED RINGERS 1,000 ML IV SCH ×2 (11:15→11:47)
[2017-03-22] MEDS ORDERED: MAGNESIUM SULFATE 40GM/1000ML 40 GM/1,000 ML BAG IV ONE (11:26)
[2017-03-22] MEDS ORDERED: MAGNESIUM SULFATE 4GM/100ML 4 GM/100 ML BAG IV ONE ×2 (11:26→11:44)
[2017-03-22 11:29] LABS: Urine Drugs of Abuse Note Disclamer
[2017-03-22 11:40] LABS: Bilirubin,Urine NEG (Negative); Blood,Urine NEG (Negative); Ketones,Urine 20 mg/dL (Negative); Leukocyte Esterase,Urine TR (Negative); Mucus,Urine 2+ /HPF; Nitrite,Urine NEG (Negative); Protein,Urine <15 mg/dL mg/dL (Negative); Urobilinogen,Urine < 2.0 mg/dL (<2.0)
[2017-03-22] MEDS ORDERED: MAGNESIUM SULFATE 40GM/1000ML 40 GM/1,000 ML BAG IV SCH (12:00)
[2017-03-22] MEDS ORDERED: NARCAN 2 MG/2 ML IV PRN (12:12)
--- NOTE | 2017-03-22 12:12 | Anesthesia Consultation ---
Anesthesia Consult and Med Hx Date of service: 03/22/17 - Airway Anesthetic Teeth Evaluation: Good ROM Head & Neck: Adequate Mental/Hyoid Distance: Adequate Mallampati Class: Class II Intubation Access Assessment: Good - Pulmonary Exam CTA: Yes - Cardiac Exam Cardiac Exam: No Murmur - Pre-Operative Health Status ASA Pre-Surgery Classification: ASA2 Proposed Anesthetic Plan: Epidural - Pulmonary Hx Asthma: No COPD: No Hx Pneumonia: No - Cardiovascular System Hx Hypertension: No - Central Nervous System Hx Seizures: No Hx Psychiatric Problems: No - Endocrine Hx Renal Disease: No Hx End Stage Renal Disease: No Hx Hypothyroidism: No Hx Hyperthyroidism: No - Hematic Hx Anemia: No Hx Sickle Cell Disease: No
[2017-03-22] MEDS ORDERED: fentaNYL-BUPIV 2 MCG/ML-0.125% 200 MCG/100 ML BAG EPIDURAL SCH (13:00)
[2017-03-22] MEDS ORDERED: POLYCILLIN/NS 1 GM/50 ML 1 GM/50 ML BAG IV SCH (14:00)
[2017-03-22] MEDS ORDERED: METHERGINE IM ONE (14:41)
--- NOTE | 2017-03-22 14:54 | Event Note ---
Date: 03/22/17 Late entry from earlier in the day at ~ 11:30: Patient had no cervical pattern changer 1 hour, she was started on magnesium per protocol for neuro protection at ~ 11:44.
[2017-03-22] MEDS ORDERED: TUCKS PAD TP PRN (14:59)
[2017-03-22] MEDS ORDERED: MILK OF MAGNESIA PO PRN (14:59)
[2017-03-22] MEDS ORDERED: PHENERGAN PR PRN (14:59)
[2017-03-22] MEDS ORDERED: BENADRYL PO PRN (14:59)
[2017-03-22] MEDS ORDERED: PHENERGAN PO PRN (14:59)
[2017-03-22] MEDS ORDERED: NORCO 5/325 PO PRN (14:59)
[2017-03-22] MEDS ORDERED: DERMOPLAST TP PRN (14:59)
[2017-03-22] MEDS ORDERED: LANSINOH TP PRN (14:59)
[2017-03-22] MEDS ORDERED: METHERGINE IM PRN (14:59)
[2017-03-22] MEDS ORDERED: DULCOLAX PR PRN (14:59)
[2017-03-22] MEDS ORDERED: ANUCORT-HC PR PRN (14:59)
[2017-03-22] MEDS ORDERED: TYLENOL PO PRN (14:59)
--- NOTE | 2017-03-22 14:59 | Procedure Note ---
OB Delivery Note - Delivery Date of Delivery: 03/22/17 Surgeon: FEDERICO DANG Estimated blood loss: 200cc - Vaginal Delivery presentation: vertex Delivery position: OA Intrapartum events: labor-<37 weeks, PROM->1hr before delivery, foul smelling fluid, mult.variable deceleratio Delivery induction: none Delivery monitor: external FHT, external uterine Route of delivery: Delivery placenta: spontaneous Delivery cord: 3 umbilical vessels Episiotomy: none Delivery laceration: none Anesthesia: epidural Delivery comments: delivery over intact perineum. NICU present at delivery. No data at the moment as transported to the NICU - A at 1 minute: 7 at 5 minutes: 8 Gender: Male (Time of Delivery was 14:35, weight is 1300 g or 2.87 lbs)
[2017-03-22] MEDS ORDERED: SODIUM CHLORIDE FLUSH SYRINGE 10 ML IV NR (15:00)
[2017-03-22] MEDS: COLACE PO SCH (21:27)
[2017-03-22] MEDS: FEOSOL PO SCH (21:28)
[2017-03-22] MEDS: MOTRIN PO SCH (21:28)
[2017-03-22] MEDS: SENOKOT S PO SCH (21:30)
[2017-03-23 06:29] LABS: Hematocrit 29.8 % (30.3-42.9); Hemoglobin 9.6 gm/dl (10.1-14.3)
[2017-03-23] MEDS: MOTRIN PO SCH ×2 (06:55→22:29)
--- NOTE | 2017-03-23 07:46 | Ultrasound Report ---
BIOPHYSICAL PROFILE: INDICATION: well being. COMPARISON: None similar. TECHNIQUE: Transabdominal ultrasound with Doppler interrogation. 2 - breathing movements 2 - movements 2 - posture and tone 0 - Qualitative amniotic fluid volume 6 - TOTAL SCORE OF POSSIBLE 8 Heart Rate (bpm) 168
--- NOTE | 2017-03-23 08:03 | Ultrasound Report ---
OB LIMITED INDICATION: ctx, JAMES, presentation. COMPARISON: 03/20/2017 TECHNIQUE: Transabdominal grayscale ultrasound with Doppler interrogation. Gestation: Larsen Position: Cephalic Amniotic Fluid: Decreased (< 7 cm) JAMES = 3.3 cm Heart Rate: 162 BPM
--- NOTE | 2017-03-23 09:04 | Progress Note ---
Assessment and Plan A: PPD #1, delivery P: Plan discharge in am Subjective - Subjective Date of service: 03/23/17 Principal diagnosis: S/P Patient reports: appetite normal [place]: in NICU Objective - Vital Signs Latest vital signs: Vital Signs Temp Pulse Pulse Resp BP BP Pulse Ox 03/23/17 04:30 98.6 F 76 16 136/78 03/23/17 00:00 98.6 F 90 16 146/79 03/22/17 22:57 100 H 03/22/17 20:00 98.6 F 67 16 136/77 03/22/17 18:46 18 03/22/17 16:45 99.1 F 121 H 20 137/66 03/22/17 16:10 115 H 114/58 03/22/17 15:55 112 H 123/55 03/22/17 15:50 99 F 18 03/22/17 15:40 110 H 124/59 03/22/17 15:25 114 H 135/66 03/22/17 15:20 112 H 18 136/66 03/22/17 15:17 112 H 136/66 03/22/17 15:09 98.9 F 105/57 03/22/17 14:55 118 H 105/57 03/22/17 14:15 130 H 99 03/22/17 14:10 121 H 99 03/22/17 14:09 122 H 114/55 03/22/17 14:05 113 H 99 03/22/17 14:00 115 H 98 03/22/17 13:55 111 H 98 03/22/17 13:50 116 H 97 03/22/17 13:45 119 H 96 03/22/17 13:40 114 H 99 03/22/17 13:38 113 H 107/55 03/22/17 13:35 116 H 100 03/22/17 13:30 116 H 100 03/22/17 13:25 118 H 99 03/22/17 13:20 116 H 100 03/22/17 13:15 113 H 100 03/22/17 13:10 120 H 100 03/22/17 13:09 118 H 111/51 03/22/17 13:05 115 H 99 03/22/17 13:00 109 H 100 03/22/17 12:55 117 H 99 03/22/17 12:50 117 H 99 05/21/17 12:45 111 H 99 03/22/17 12:43 106 H 101/52 03/22/17 12:41 105 H 97/48 03/22/17 12:40 108 H 99 03/22/17 12:39 104 H 88/46 03/22/17 12:35 111 H 96 03/22/17 12:30 118 H 96 03/22/17 12:25 120 H 97 03/22/17 12:20 109 H 96 03/22/17 12:16 111 H 93 03/22/17 12:15 107 H 95 03/22/17 12:12 113 H 137/57 03/22/17 12:10 122 H 95 03/22/17 12:08 114 H 70/54 03/22/17 12:06 111 H 107/55 03/22/17 12:05 103 H 114/56 94 03/22/17 12:00 115 H 124/59 03/22/17 11:58 116 H 118/69 97 03/22/17 11:56 118 H 114/59 03/22/17 11:54 118 H 112/55 03/22/17 11:53 118 H 119/58 97 03/22/17 11:48 106 H 99 03/22/17 11:47 110 H 111/53 03/22/17 11:43 108 H 100 03/22/17 11:42 104 H 123/58 03/22/17 11:38 114 H 136/69 99 03/22/17 11:34 113 H 137/77 03/22/17 11:33 110 H 100 03/22/17 11:28 107 H 100 03/22/17 11:23 106 H 100 03/22/17 11:18 102 H 100 03/22/17 11:13 98.6 F 107 H 104 H 18 127/69 99 03/22/17 11:08 102 H 100 03/22/17 11:04 105 H 127/69 03/22/17 11:03 107 H 100 03/22/17 10:58 103 H 100 03/22/17 09:43 127 H 99 03/22/17 09:41 107 H 93 03/22/17 09:40 107 H 93 03/22/17 09:39 113 H 90 03/22/17 09:38 117 H 89 03/22/17 09:34 108 H 89 03/22/17 09:32 104 H 93 03/22/17 09:29 107 H 92 03/22/17 09:28 112 H 93 03/22/17 09:25 101 H 95 Intake and Output 03/22/17 03/23/17 03/23/17 22:59 06:59 14:59 Intake Total 960 1100 Output Total 1800 Balance -840 1100 Intake: IV 200 PITOCin/NS 20 UNIT/1000ML 200 DRIP 20 units In 1,000 ml @ 125 mls/hr IV DIRECT ERICA Rx#:[id number] Oral 360 300 Intake, Free Water 400 800 Output: Urine 1800 Void 1800 Other: Total, Intake Amount 360 300 Total, Output Amount 900 Estimated Blood Loss 200 - Exam Breasts: Present: deferred Cardiovascular: Present: Regular rate Lungs: Present: Clear to auscultation Abdomen: Present: soft Vulva: both: normal Uterus: Present: fundal height below umbilicus Extremities: Present: normal Deep Tendon Reflex Grade: Normal +2 - Labs Labs: Abnormal lab results 03/22/17 03/22/17 03/23/17 Range/Units 10:00 10:00 05:55 WBC 11.8 H (4.5-11.0) K/mm3 Hgb 9.9 L 9.6 L (10.1-14.3) gm/dl Hct 29.8 L (30.3-42.9) % MCH 27 L (28-32) pg RDW 15.8 H (13.2-15.2) % Urine WBC (Auto) 8.0 H (0.0-6.0) /HPF
--- NOTE | 2017-03-23 09:06 | Discharge Summary ---
Providers - Providers Date of Admission: 03/22/17 07:54 Date of discharge: 03/24/17 Attending physician: XIOMARA BENSON MD Primary care physician: XIOMARA BENSON MD Hospitalization Reason for admission: labor Delivery: Episiotomy: none Laceration: none Other procedures: none Discharge diagnosis: delivery baby: male Condition at discharge: Good Disposition: DISCHARGED TO HOME OR SELFCARE Plan - Discharge Medications Prescriptions: HYDROcodone/APAP 5-325 [[place] 5/325] 1 each PO Q6HR PRN #10 tablet PRN Reason: Pain Ibuprofen [Motrin 600 MG tab] 600 mg PO Q8H PRN #30 tablet PRN Reason: Pain Multivitamin with Iron [Multivitamins with Iron] 1 each PO DAILY #30 tablet - Provider Discharge Summary Activity: routine, no sex for 6 weeks, no strenuous exercise Diet: routine Instructions: routine Additional instructions: [] Smoking cessation referral if applicable(refer to patient education folder for contact #) [] Refer to [facility]'s [facility] Booklet Call your doctor immediately for: * Fever > 100.5 * Heavy vaginal bleeding ( >1 pad per hour) * Severe persistent headache * Shortness of breath * Reddened, hot, painful area to leg or breast * Drainage or odor from incision. * Keep incision clean and dry at all times and follow doctor's instructions regarding bathing/showering - Follow up plan Follow up: [facility] [Provider Group] - 6 Weeks
[2017-03-23] MEDS: PRENATAL VITAMIN PO SCH (10:05)
[2017-03-23] MEDS: COLACE PO SCH ×2 (10:05→22:25)
[2017-03-23] MEDS: FEOSOL PO SCH ×2 (10:05→22:25)
[2017-03-23] MEDS: SENOKOT S PO SCH (22:25)
[2017-03-24] MEDS: MOTRIN PO SCH ×2 (05:20→15:32)
[2017-03-24] MEDS: COLACE PO SCH (11:53)
[2017-03-24] MEDS: PRENATAL VITAMIN PO SCH (11:53)
[2017-03-24] MEDS: FEOSOL PO SCH (11:53)
[2017-03-24 15:06] VITALS: BP 122/71
[2017-03-24] MEDS: SENOKOT S PO SCH (15:31)
== END 2017-03-24 18:00 | disposition home or self-care (01) | DRG 775 ==
LOC: TRG 07:53 → LD 07:54 → TRG 07:54 → OB 17:21
PROVIDERS: ADMIT Obstetrics & Gynecology; ATTEND Obstetrics & Gynecology
PROC: 00HU33Z Insertion of Infusion Device into Spinal Canal, Percutaneous Approach (ICD-10-PCS; principal; 2017-03-22)
PROC: 3E0S3CZ (ICD-10-PCS; principal; 2017-03-22)
PROC: 10E0XZZ Delivery of Products of Conception, External Approach (ICD-10-PCS; principal; 2017-03-22)
DX: O60.14X0 Preterm labor third trimester with preterm delivery third trimester, not applicable or unspecified (principal); O76 Abnormality in fetal heart rate and rhythm complicating labor and delivery; O34.13 Maternal care for benign tumor of corpus uteri, third trimester; O42.113 Preterm premature rupture of membranes, onset of labor more than 24 hours following rupture, third trimester; O62.9 Abnormality of forces of labor, unspecified; Z3A.29 29 weeks gestation of pregnancy; Z37.0 Single live birth
CPT/HCPCS: 36415; 76815; 76819; 80307; 81001; 85014; 85018; 85027; 86850; 86900; 86901; 88307; 99211; A6250; G0463; J0290; J0702; J2210; J2590; J3475; J7120

== ENCOUNTER 2019-01-05 08:36 | Inpatient (IN) | payer MEDICAID ==
[2019-01-05] MEDS ORDERED: LACTATED RINGERS 1,000 ML IV SCH ×2 (09:00)
[2019-01-05] MEDS ORDERED: PITOCin/NS 30 UNIT/500ML 30 UNITS/500 ML BAG IV SCH ×2 (09:00)
[2019-01-05] MEDS ORDERED: PITOCin/NS 20 UNIT/1000ML DRIP 20 UNITS/1,000 ML BAG IV SCH ×2 (09:00→11:00)
--- NOTE | 2019-01-05 09:01 | History and Physical Report ---
History of Present Illness Date of examination: 01/05/19 Date of admission: 01/05/19 08:47 Chief complaint: Labor History of present illness: Pt is a 38yo BF EDC 01/17/19; EGA 38 2/7 weeks presents to L&D complaining of RUC's q 3-4 mins. She received care at [facility] since 21 weeks and co-managed by [facility] due to AMA, GDM and previous PTD. records are available and GBS is unknown. 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: abnormal PAP smear, herpes Social history: no significant social history, single - Obstetrical History Expected Date of Delivery: 01/17/19 Actual Gestation: 38 Week(s) 2 Day(s) : 4 Medications and Allergies Allergies Allergy/AdvReac Type Severity Reaction Status Date / Time No Known Allergies Allergy Verified 01/05/19 08:54 Home Medications Medication Instructions Recorded Confirmed Last Taken Type Pnv No.95/Ferrous Fum/Folic AC 1 tab PO DAILY 10/18/18 10/18/18 10/17/18 09:00 History [ Vitamins Tablet] Active Meds: Active Medications Butorphanol Tartrate (Stadol) 2 mg IV Q2H PRN PRN Reason: Pain , Severe (7-10) Diagnostic Test (Pha) (Nitratest Paper) 1 each MC ONCE ONE Stop: 01/05/19 08:57 Ephedrine Sulfate (Ephedrine Sulfate) 10 mg IV Q2M PRN PRN Reason: Hypotension Fentanyl (Sublimaze) 100 mcg IV Q2H PRN PRN Reason: Labor Pain Lactated Ringer's (Lactated Ringers) 1,000 mls @ 125 mls/hr IV DIRECT ERICA Ampicillin Sodium (Ampicillin/Ns 1 Gm/50 Ml) 1 gm in 50 mls @ 100 mls/hr IV Q4HR ERICA; Protocol Ampicillin Sodium (Polycillin/Ns 2 Gm/100 Ml) 2 gm in 100 mls @ 100 mls/hr IV ONCE ONE; Protocol Stop: 01/05/19 09:54 Review of Systems All systems: negative - Vital Signs Vital signs: Vital Signs Pulse BP 108 H 166/86 01/05/19 08:59 01/05/19 08:59 Temp Pulse Resp BP Pulse Ox 108 H 166/86 01/05/19 08:59 01/05/19 08:59 - Physical Exam Breasts: Positive: deferred Cardiovascular: Regular rate Lungs: Positive: Clear to auscultation Abdomen: Positive: normal appearance Genitourinary (Female): Positive: normal external genitalia Vagina: Positive: normal moisture Uterus: Positive: enlarged Extremities: Positive: normal - Obstetrical FHR: category 1 Uterine Contraction Monitor Mode: External Cervical Dilatation: 8 (per nurse) Cervical Effacement Percentage: 100 (per nurse) station: 0 Uterine Contraction Pattern: Regular Uterine Tone Measurement Phase: Contraction Uterine Contraction Intensity: Moderate Results Result Diagrams: 01/05/19 09:00 All other labs normal. Assessment and Plan - Patient Problems (1) 38 weeks gestation of Onset Date: 01/05/19 Current Visit: Yes Status: Acute Plan to address problem: A: IUP @ 38 2/7 weeks in labor Unknown GBS AMA P: Admit to L&D for expectant vaginal delivery IV Ampicillin (2) AMA (advanced maternal age) multigravida 35+ Onset Date: 01/05/19 Current Visit: Yes Status: Acute Qualifiers: Trimester: third trimester Qualified Code(s): O09.523 - Supervision of elderly multigravida, third trimester
[2019-01-05] MEDS ORDERED: SUBLIMAZE IV PRN ×2 (09:15→09:30)
[2019-01-05] MEDS ORDERED: AMPICILLIN/NS 2 GM/100 ML 2 GM/100 ML BAG IV NR (09:30)
[2019-01-05] MEDS ORDERED: XYLOCAINE 2% INFILTRATI NR (09:30)
[2019-01-05] MEDS ORDERED: ZOFRAN IV PRN ×2 (09:30→10:45)
[2019-01-05] MEDS ORDERED: STADOL IV PRN (09:30)
[2019-01-05] MEDS ORDERED: MINERAL OIL PO PRN (09:30)
[2019-01-05 09:32] LABS: Basophils # (Auto) 0.1 K/mm3 (0.0-0.1); Basophils % (Auto) 0.7 % (0.0-1.8); Eosinophils % (Auto) 0.2 % (0.0-4.3); Hematocrit 35.4 % (30.3-42.9); Hemoglobin 11.6 gm/dl (10.1-14.3); Lymphocytes # (Auto) 2.4 K/mm3 (1.2-5.4); Lymphocytes % (Auto) 31.3 % (13.4-35.0); Mean Corpuscular HGB Conc 33 % (30-34); Mean Corpuscular Volume 86 fl (79-97); Monocytes # (Auto) 0.6 K/mm3 (0.0-0.8); Monocytes % (Auto) 8.4 % (0.0-7.3); Red Blood Count 4.14 M/mm3 (3.65-5.03)
[2019-01-05 09:33] LABS: Platelet Count 282 K/mm3 (140-440)
[2019-01-05] MEDS ORDERED: NITRATEST PAPER MC ONE (10:00)
[2019-01-05] MEDS ORDERED: PHENERGAN PO PRN ×2 (10:00→10:45)
[2019-01-05] MEDS ORDERED: BRETHINE SUB-Q PRN (10:00)
[2019-01-05] MEDS ORDERED: BRETHINE IVP PRN (10:00)
--- NOTE | 2019-01-05 10:42 | Procedure Note ---
OB Delivery Note - Delivery Date of Delivery: 01/05/19 Surgeon: XIOMARA MARLEY Estimated blood loss: <100cc - Vaginal Delivery presentation: vertex Delivery position: OA Intrapartum events: precipitous labor- <3hr Delivery induction: none Delivery augmentation: rupture of membranes Delivery monitor: external FHT, external uterine Route of delivery: Delivery placenta: spontaneous Delivery cord: 3 umbilical vessels Episiotomy: none Delivery laceration: none Anesthesia: none Delivery comments: delivered OA and placed on Mom's chest for [id number] bonding and delayed cord clamping, cut by Dad - A at 1 minute: 8 at 5 minutes: 9 Infant Gender: Male (3104gms)
[2019-01-05] MEDS ORDERED: TYLENOL PO PRN (10:45)
[2019-01-05] MEDS ORDERED: LANSINOH TP PRN (10:45)
[2019-01-05] MEDS ORDERED: NORCO 5/325 PO PRN (10:45)
[2019-01-05] MEDS ORDERED: BENADRYL PO PRN (10:45)
[2019-01-05] MEDS ORDERED: PHENERGAN PR PRN (10:45)
[2019-01-05] MEDS ORDERED: MILK OF MAGNESIA PO PRN (10:45)
[2019-01-05] MEDS ORDERED: TUCKS PAD TP PRN (10:45)
[2019-01-05] MEDS ORDERED: DULCOLAX PR PRN (10:45)
[2019-01-05] MEDS ORDERED: SODIUM CHLORIDE FLUSH SYRINGE 10 ML IV SCH (11:00)
[2019-01-05] MEDS ORDERED: AMPICILLIN/NS 1 GM/50 ML 1 GM/50 ML BAG IV SCH (14:00)
[2019-01-05] MEDS: FEOSOL PO SCH (22:45)
[2019-01-05] MEDS: IBUPROFEN PO SCH (22:45)
[2019-01-05] MEDS: COLACE PO SCH (22:46)
[2019-01-05 22:47] LABS: Hematocrit 30.1 % (30.3-42.9); Hemoglobin 10.1 gm/dl (10.1-14.3)
[2019-01-06] MEDS ORDERED: BOOSTRIX IM ONE (06:00)
[2019-01-06] MEDS: IBUPROFEN PO SCH ×2 (09:14→17:13)
[2019-01-06] MEDS: FEOSOL PO SCH (09:14)
[2019-01-06] MEDS: COLACE PO SCH (09:14)
[2019-01-06] MEDS: PRENATAL VITAMIN PO SCH (09:14)
[2019-01-06] MEDS ORDERED: M-M-R II VACCINE SUB-Q ONE (10:45)
--- NOTE | 2019-01-06 12:41 | Progress Note ---
Assessment and Plan - Patient Problems (1) 38 weeks gestation of Onset Date: 01/05/19 Current Visit: Yes Status: Resolved (2) AMA (advanced maternal age) multigravida 35+ Onset Date: 01/05/19 Current Visit: Yes Status: Chronic Qualifiers: Trimester: third trimester Qualified Code(s): O09.523 - Supervision of elderly multigravida, third trimester (3) (normal spontaneous vaginal delivery) Onset Date: 01/06/19 Current Visit: Yes Status: Resolved Plan to address problem: A: S/P - PPD #1 Doing well Asymptomatic anemia - stable P: May go home tomorrow. (4) Acute blood loss anemia Onset Date: 01/06/19 Current Visit: Yes Status: Resolved Subjective - Subjective Date of service: 01/06/19 Principal diagnosis: s/p - PPD #1 Interval history: Pt is feeling well without complaints. Bleeding improved. Patient reports: appetite normal, voiding normally, pain well controlled, flatus, ambulating normally, no dizzy ambulation, no nauseated [place]: doing well, nursing well, bottle feeding Objective - Vital Signs Latest vital signs: Vital Signs Temp Pulse Resp BP Pulse Ox 01/06/19 09:40 98.2 F 80 18 132/80 01/06/19 01:15 98.4 F 92 H 18 117/77 01/05/19 21:45 98.8 F 92 H 18 141/88 01/05/19 16:39 98.5 F 105 H 18 134/76 99 Intake and Output 01/05/19 01/06/19 01/06/19 22:59 06:59 14:59 Intake Total 600 360 320 Output Total 400 300 Balance 200 60 320 Intake: Oral 480 320 Intake, Free Water 120 360 Output: Urine 400 300 Void 400 300 Other: Total, Intake Amount 480 320 Total, Output Amount 400 300 - Exam Breasts: Present: deferred Abdomen: Present: normal appearance, soft Uterus: Present: normal, firm, fundal height below umbilicus Extremities: Present: normal - Labs Labs: Abnormal lab results 01/05/19 Range/Units 22:18 Hct 30.1 L (30.3-42.9) % Laboratory Tests 01/05/19 01/05/19 01/05/19 09:00 09:00 09:00 WBC 7.6 RBC 4.14 Hgb 11.6 Hct 35.4 MCV 86 MCH 28 MCHC 33 RDW 17.0 H Plt Count 282 Lymph % (Auto) 31.3 Dent % (Auto) 8.4 H Eos % (Auto) 0.2 Baso % (Auto) 0.7 Lymph # 2.4 Dent # 0.6 Eos # 0.0 Baso # 0.1 Seg Neutrophils % 59.4 Seg Neutrophils # 4.5 RPR Nonreactive Blood Type O POSITIVE Antibody Screen Negative 01/05/19 22:18 WBC RBC Hgb 10.1 Hct 30.1 L MCV MCH MCHC RDW Plt Count Lymph % (Auto) Dent % (Auto) Eos % (Auto) Baso % (Auto) Lymph # Dent # Eos # Baso # Seg Neutrophils % Seg Neutrophils # RPR Blood Type Antibody Screen
[2019-01-07] MEDS: FEOSOL PO SCH ×2 (00:08→10:15)
[2019-01-07] MEDS: COLACE PO SCH ×2 (00:08→10:15)
[2019-01-07] MEDS: IBUPROFEN PO SCH ×3 (00:09→12:25)
[2019-01-07] MEDS: PRENATAL VITAMIN PO SCH (10:15)
--- NOTE | 2019-01-07 12:12 | Discharge Summary ---
Providers - Providers Date of Admission: 01/05/19 08:47 Date of discharge: 01/07/19 Attending physician: XIOMARA MARLEY Primary care physician: XIOMARA MARLEY Hospitalization Reason for admission: active labor, IUP at term Delivery: Episiotomy: none Laceration: none Other procedures: none complications: none Discharge diagnosis: IUP at term delivered [place] baby: male Hospital course: Unremarkable. Condition at discharge: Good Disposition: DC-01 TO HOME OR SELFCARE - Discharge Diagnoses (1) 38 weeks gestation of Status: Resolved (2) AMA (advanced maternal age) multigravida 35+ Status: Chronic Qualifiers: Trimester: third trimester Qualified Code(s): O09.523 - Supervision of elderly multigravida, third trimester (3) (normal spontaneous vaginal delivery) Status: Resolved (4) Acute blood loss anemia Status: Resolved Plan - Discharge Medications Prescriptions: Ferrous Sulfate [Feosol 325 MG tab] 325 mg PO BID #60 tablet Ibuprofen [Motrin 600 MG tab] 600 mg PO Q6HR #30 tablet Vit-Fe Fumar-FA [ Vitamin] 1 each PO QDAY #30 tablet - Provider Discharge Summary Activity: routine, no sex for 6 weeks, no heavy lifting 4 weeks, no strenuous exercise Diet: routine Instructions: routine Additional instructions: [] Smoking cessation referral if applicable(refer to patient education folder for contact #) [] Refer to [facility]'s [facility] Booklet Call your doctor immediately for: * Fever > 100.5 * Heavy vaginal bleeding ( >1 pad per hour) * Severe persistent headache * Shortness of breath * Reddened, hot, painful area to leg or breast * Drainage or odor from incision. * Keep incision clean and dry at all times and follow doctor's instructions regarding bathing/showering - Follow up plan Follow up: XIOMARA MARLEY MD [Primary Care Provider] - 6 Weeks ROSS ENRIQUEZ NP [Referring] - 6 Weeks
[2019-01-07 15:39] VITALS: BP 148/79
== END 2019-01-07 16:15 | disposition home or self-care (01) | DRG 775 ==
LOC: TRG 08:36 → LD 08:47 → TRG 08:47 → OB 12:34
PROVIDERS: ADMIT Obstetrics & Gynecology; ATTEND Obstetrics & Gynecology
PROC: 10E0XZZ Delivery of Products of Conception, External Approach (ICD-10-PCS; principal; 2019-01-05)
PROC: 3E0234Z Introduction of Serum, Toxoid and Vaccine into Muscle, Percutaneous Approach (ICD-10-PCS; 2019-01-06)
DX: O62.3 Precipitate labor (principal); D62 Acute posthemorrhagic anemia; O99.02 Anemia complicating childbirth; O24.429 Gestational diabetes mellitus in childbirth, unspecified control; Z37.0 Single live birth; Z3A.38 38 weeks gestation of pregnancy; Z23 Encounter for immunization
CPT/HCPCS: 36415; 85014; 85018; 85025; 86592; 86850; 86900; 86901; G0378; J0290; J2590; J3010; J7120